=== PATIENT | male | born 1950 | race Caucasian/White ===

== ENCOUNTER 2024-04-10 08:35 | Emergency (ER) | payer MEDICARE, OTHER, SELFPAY ==
--- NOTE | ~2024-04-10 | XR_ITS ---
EXAMINATION: XR KNEE, RIGHT CLINICAL INFORMATION: Pain following a fall. COMPARISON: None available. TECHNIQUE: Four views of the right knee. FINDINGS: No displaced fracture. No dislocation. Normal patellofemoral alignment. No joint space or marginal osteophytes. No osseous erosion. Small joint effusion. No abnormal soft tissue calcification. XR/XR knee RT 4V IMPRESSION: No displaced fracture. Small joint effusion.
[2024-04-10 08:48] VITALS: BP 111/46; PULSE 61; RESP 18; TEMP 36.8; O2SAT 93; BMI 30.5
--- NOTE | 2024-04-10 09:22 | ED_ITS ---
HPI - Extremity Problem General Chief complaint: Extremity Problem Stated complaint: fall yesterday, R leg pain Time Seen by Provider: 04/10/24 09:21 Source: patient Mode of arrival: ambulatory Limitations: no limitations History of Present Illness ED Provider: Claudine Rodriguez APRN HPI Narrative: This is a 73-year-old male who denies any medical history who reports the ER after mechanical fall yesterday landing directly on the right knee. He denies any head strike or loss of consciousness. Since then he has had pain in his right knee with some pain which is worsened with flexion of the extremity. He denies any swelling, redness, warmth, fevers, chills. No associated numbness or tingling of extremity. No previous injury to the knee or previous surgical history on the knee. Related Data Allergies Allergy/AdvReac Type Severity Reaction Status Date / Time No Known Allergies Allergy Verified 04/10/24 08:50 Review of Systems Review of Systems: Yes all other systems are reviewed and are negative Constitutional: Constitutional: Reports no additional constitutional complaints, Denies body ache(s), Denies chills, Denies fever(s), Denies headache(s) and Denies weakness Eyes: Eyes: Reports no additional eye complaints and Denies change in vision ENT: Reports system reviewed and no additional complaints, except as documented, Denies dizziness, Denies headache(s), Denies nasal congestion, Denies nasal discharge and Denies neck pain Cardiovascular: Cardiovascular: Reports no additional cardiovascular complaints, Denies chest pain, Denies leg edema and Denies dyspnea Respiratory: Respiratory: Reports no additional respiratory complaints, Denies cough and Denies dyspnea Gastrointestinal: Gastrointestinal: Reports no additional gastrointestinal complaints, Denies abdominal pain, Denies diarrhea, Denies nausea and Denies vomiting Genitourinary: Genitourinary: Denies urinary incontinence Musculoskeletal: Musculoskeletal: Reports no additional musculoskeletal complaints, Denies back pain, Reports arthralgias, Reports joint swelling, Denies limited range of motion, Denies neck pain, Denies numbness and Denies tingling Integumentary/Breasts: Skin/Breast: Reports system reviewed and no additional complaints, except as docu and Denies rash Neurologic: Reports system reviewed and no additional complaints, except as documented, Denies Abnormal speech present, Denies dizziness, Denies headache(s), Denies numbness, Denies tingling and Denies weakness PMF Past Medical History Attestation statement: The following information was validated with the patient. Source: old records reviewed and nursing notes reviewed Social History Social History Advance Directives: No Advance Directives Information Provided: No Physical Exam Vital Signs: Vital Signs: Last Vital Signs Temp 98.1 F 04/10/24 09:58 Pulse 63 04/10/24 09:58 Resp 18 04/10/24 09:58 BP 112/52 L 04/10/24 09:58 Pulse Ox 94 04/10/24 09:58 O2 Del Method Room Air 04/10/24 09:58 BMI result Body Mass Index 30.5 Const: General: cooperative, healthy appearing, comfortable and no acute distress Orientation/consciousness: patient oriented x3 Limitations: no limitations HEENT: Head: Yes normal to inspection Ears: hearing grossly normal bilaterally General nose exam: Normal external nose present Face and sinus: Yes normal facial exam Mouth: Normal oral and palatal mucosa present Throat: Yes posterior oropharynx normal Eyes: General: appearance normal, both eyes and all related structures Pupils: Equal, round and reactive pupils present Neck: Neck: Yes normal visual inspection Chest: Chest palpation & inspection: normal inspection of the chest Resp: Effort & Inspection: normal respiratory effort Auscultation: clear to auscultation bilaterally Cardio: Rate: regular rate Rhythm: regular rhythm Peripheral pulses: Peripheral pulses 2+ throughout GI: Inspection: Yes normal to inspection Palpation (GI): Soft to palpation and nontender Auscultation: normal bowel sounds Back/Spine/Pelvis: Thoracic/Lumbar Spine: thoracic and lumbar spine normal to inspection Skin: General skin exam: no rashes or lesions noted Neuro: General: patient oriented x3, no focal motor deficits and normal sensation to monofilament Cranial nerves: Yes Equal, round and reactive pupils present Cognition (Neuro): normal cognition Speech: No Abnormal speech present Gait exam (Neuro): Normal gait present Motor exam (neuro): 5/5 motor strength present throughout Extrem: Other: +TTP right anterior knee with full activ e/passive ROM Distal ROM intact of ankle/foot No TTP over right calf/posterior ankle or more proximally Normal sensation No swelling, erythema or warmth 2+ DP/PT pulses General: Yes normal to inspection Course Course Course Narrative: x-ray show no acute fracture small joint effusion. Patient placed in Deandre wrap and given crutches for home with recommendations to use rice, NSAIDs and follow up with primary as needed. Patient does arrive in a wheelchair but reports he is able to walk although it is painful. He did drive himself here. Medications Administered Discontinued Medications Generic Name Dose Route Start Last Admin Trade Name Larry PRN Reason Stop Dose Admin Naproxen 500 mg 04/10/24 09:23 04/10/24 09:29 Naproxen 500 Mg Tablet PO 04/10/24 09:24 500 mg ONCE ONE Administration Medical Decision Making Medical Decision Making [facility] Narrative: This is a 73-year-old male who denies any medical history who reports the ER after mechanical fall yesterday landing directly on the right knee. He denies any head strike or loss of consciousness. Since then he has had pain in his right knee with some pain which is worsened with flexion of the extremity. He denies any swelling, redness, warmth, fevers, chills. No associated numbness or tingling of extremity. No previous injury to the knee or previous surgical history on the knee. +TTP right anterior knee with full active/passive ROM Distal ROM intact of ankle/foot No TTP over right calf/posterior ankle or more proximally Normal sensation No swelling, erythema or warmth 2+ DP/PT pulses Will obtain x-ray Differential Diagnosis Differential Diagnoses: The differential diagnosis associated with the presentation includes contusion, fracture, dislocation, low concern for vascular injury Admission/Observation Consideration of admission/observation: Escalation of care including admission/observation considered low concern for vascular injury, complex fracture dislocation requiring advanced imaging, urgent orthopedic consultation Independent Interpretation I performed an independent interpretation of an: Plain X-Ray Interpretation: I independently viewed the x-ray and agree with the radiology report Radiology Impression Discussion of test interpretation with radiology: I have reviewed the radiologist's reading. Radiologist Impression: No displaced fracture. No dislocation. Normal patellofemoral alignment. No joint space or marginal osteophytes. No osseous erosion. Small joint effusion. No abnormal soft tissue calcification. XR/XR knee RT 4V IMPRESSION: No displaced fracture. Small joint effusion. Tests considered The following testing was considered but not selected: ow concern for vascular injury, complex fracture dislocation requiring advanced imaging, Prescription Management I considered prescription management with: Pain Medication Discharge Plan Discharge Clinical Impression: Contusion of knee, right Patient Disposition: Home, Self-Care Instructions: Contusion in Adults (ED) Additional Instructions: Your x-ray show no fractures. There is a small joint effusion seen in the knee which will resolve on its own. Please use the Deandre wrap for compression. Use crutches as needed. Take ibuprofen or naproxen routinely for the next few days to help with inflammation and pain. Apply ice to the area. Elevate the extremity. Follow-up with your primary care doctor for any continued symptoms Referrals: Faustino Bender MD [Primary Care Provider] - 1 week Interventions: ED Discharge Assessment Last Done: 04/10/24 09:58 Discharge Date/Time: 04/10/24 10:00 Print Language: Peruvian
[2024-04-10] MEDS: NaPROXEN 500 MG TABLET PO (09:29)
[2024-04-10 09:58] VITALS: BP 112/52; PULSE 63; RESP 18; TEMP 36.7; O2SAT 94
== END 2024-04-10 10:00 | disposition home or self-care (01) ==
LOC: HO.ED 09:32
PROVIDERS: Emergency Provider Emergency Medicine; PCP Internal Medicine
DX: S80.01XA Contusion of right knee, initial encounter (principal); W18.30XA Fall on same level, unspecified, initial encounter; M25.461 Effusion, right knee; M25.561 Pain in right knee; Y93.9 Activity, unspecified; Y92.9 Unspecified place or not applicable; Y99.9 Unspecified external cause status
CPT/HCPCS: 73564; 99283